=== PATIENT | female | born 1935 | race Asian ===

== ENCOUNTER → 2018-09-17 | Outpatient (CLI) | payer MEDICARE, OTHER ==
[2018-09-17 14:08] LABS: ANION GAP 9 (5-13); BLOOD UREA NITROGEN 16 mg/dl (7-20); CARBON DIOXIDE 29 mmol/L (21-31); CHLORIDE 101 mmol/L (97-110); CREATININE 0.88 mg/dl (0.44-1.00); GLUCOSE 168 mg/dl (70-220); POTASSIUM 4.1 mmol/L (3.5-5.1); SODIUM 139 mmol/L (135-144)
== END | disposition home or self-care (01) ==
LOC: LAB 13:16
DX: R06.02 Shortness of breath (principal)
CPT/HCPCS: 80048

== ENCOUNTER → 2018-10-01 | Outpatient (CLI) | payer MEDICARE, OTHER ==
[~2018-10-01] MED LIST: NITROGLYCERIN AEROSOL (4.9 GM)
[2018-10-01] MEDS: IOHEXOL 100 ML (12:10)
[2018-10-01] MEDS: SOD CHLORIDE 0.9% 100 ML (12:10)
== END | disposition home or self-care (01) ==
LOC: C/S 10:08
DX: R06.02 Shortness of breath (principal)
CPT/HCPCS: 75571; 75574